=== PATIENT | male | born 1975 | race Caucasian/White ===

== ENCOUNTER 2017-12-12 20:22 | Emergency (ER) | payer SELFPAY ==
[2017-12-12] MEDS ORDERED: PROPARACAINE HCL 0.5% OPTH OP ONE (20:41)
[2017-12-12 20:44] VITALS: BP 147/86
--- NOTE | 2017-12-12 21:31 | ED Physician Documentation ---
Eye Trauma - HISTORIAN Historian: patient, spouse - HPI Stated Complaint: lt eye possible FB Chief Complaint: Eye Trauma Additional Information: for body lt eye Onset: hours (3) Associated symptoms: pain, burining, redness Location: left eye Severity: mild, moderate Apparent Injury: yes Context: foreign body Where: home - ROS CONST: no problems MS/SKIN/LYMPH: denies: weakness, numbness, neck pain, back pain CVS/RESP: none EYES/ENT: none GI/: denies: problems urinating NEURO: denies: headache - PAST HX Past History: hypertension Allergies/Adverse Reactions: Allergies Allergy/AdvReac Type Severity Reaction Status Date / Time No Known Drug Allergies Allergy Verified 12/12/17 20:35 Home Medications: Ambulatory Orders Medication Instructions Recorded Lisinopril [Prinivil] 20 mg PO D 12/12/17 - SOCIAL HX Smoking History: non-smoker Alcohol Use: none Drug Use: none - FAMILY HX Family History: no significant history - VITAL SIGNS Vital Signs: Vital Signs Temp Pulse Resp BP Pulse Ox 98.1 F 85 16 147/86 99 12/12/17 20:22 12/12/17 20:22 12/12/17 20:22 12/12/17 20:22 12/12/17 20:22 - REVIEWED ASSESSMENTS Nursing Assessment Reviewed: Yes Vitals Reviewed: Yes ED Results Lab/Radiology - Orders Orders: ED Orders Category Date Time Status Proparacaine HCl [Ophthaine] Med 12/12/17 20:41 Discontinued 2 drop OP NOW ONE Eye Trauma Physical Exam - Physical Exam General Appearance: mild distress Visual Acuity: no globe trauma Eyelids: foreign body under eyelid (L), everted for exam (L) Conjunctiva and Sclera: nml inspection, injected (L) Corneas: foreign body (L), examined with fluorescein (L) EOM's: intact Pupils: PERRL, nml accommodation Head/ENT: nml inspection Skin: nml color, warm, skin intact. No: ecchymosis Neck/Back: nml inspection, non-tender Respiratory: no resp distress, breath sounds normal CVS: reg rate & rhythm, heart sounds normal Neuro/Psych: oriented x3, mood/affect nml. No: depressed mood/affect Discharge Clincal Impression: for body lt eye Referrals: Primary Doctor,No [Primary Care Provider] - 2 Days Comments: removed local anes cotton tip applicator Condition: Good Disposition: 01 HOME, SELF-CARE Decision to Admit: NO Decision Time: 21:35
== END 2017-12-12 21:34 | disposition home or self-care (01) ==
LOC: ED 20:22
DX: T15.82XA Foreign body in other and multiple parts of external eye, left eye, initial encounter (principal); X58.XXXA Exposure to other specified factors, initial encounter; Y93.9 Activity, unspecified; Y92.9 Unspecified place or not applicable; Y99.9 Unspecified external cause status
CPT/HCPCS: 99282